=== PATIENT | female | born 1970 | race Caucasian/White ===

== ENCOUNTER 2016-11-16 10:04 | Emergency (ER) | payer MEDICARE ==
[2016-11-16 11:39] VITALS: BP 109/58
--- NOTE | 2016-11-16 11:57 | UC ---
Elbow Pain - HPI Summary HPI Summary: complaint of right elbow pain that started approx 1 month ago there is a lump in her pain increases with lifting something up pain has worsened over the past week pain is radiating into her right hand occasionally constantly has an achy pain shooting burning pain into her hand with lifting sometimes gets swelling over her elbow has been using ice and ibuprofen and somtimes alveve without relief fell down the stairs several months ago and hit her elbow - History of Current Complaint Chief Complaint: UCUpperExtremity Stated Complaint: RIGHT ELBOW PAIN Time Seen by Provider: 11/16/16 11:51 Hx Obtained From: Patient - Allergies/Home Medications Allergies/Adverse Reactions: Allergies Allergy/AdvReac Type Severity Reaction Status Date / Time Morphine Allergy See Comment Verified 11/16/16 11:39 Oxycodone Allergy Itching Verified 11/16/16 11:39 Home Medications: Home Medications Ibuprofen [Advil] 400 mg PO Q6H PRN 11/16/16 [History Confirmed 11/16/16] Naproxen 500 mg PO ONCE 11/16/16 [History Confirmed 11/16/16] PMH/Surg Hx/FS Hx/Imm Hx Previously Healthy: Yes - Surgical History Surgical History: Yes Surgery Procedure, Year, and Place: L5-S1 FUSION 2004, NEUROSTIMULATOR IMPLANTED -2006 - Family History Known Family History: Positive: None Negative: Cardiac Disease, Hypertension, Diabetes - Social History Occupation: Employed Full-time Lives: With Family Alcohol Use: None Substance Use Type: None Smoking Status (MU): Former Smoker When Did the Patient Quit Smoking/Using Tobacco: 2003 Review of Systems Constitutional: Negative Skin: Negative Eyes: Negative ENT: Negative Respiratory: Negative Cardiovascular: Negative Gastrointestinal: Negative Genitourinary: Negative Motor: Negative Neurovascular: Other - right elbow pain Musculoskeletal: Negative Neurological: Negative Psychological: Negative All Other Systems Reviewed And Are Negative: Yes Physical Exam Triage Information Reviewed: Yes Appearance: No Pain Distress, Well-Nourished Vital Signs: Initial Vital Signs Temp 98.9 F 11/16/16 11:34 Pulse 95 11/16/16 11:34 Resp 16 11/16/16 11:34 BP 109/58 11/16/16 11:34 Pulse Ox 98 11/16/16 11:34 Vital Signs Reviewed: Yes Eyes: Positive: Conjunctiva Clear ENT: Positive: Pharynx normal, TMs normal Neck: Positive: No Lymphadenopathy Respiratory: Positive: Lungs clear, Normal breath sounds, No respiratory distress Cardiovascular: Positive: RRR, No Murmur, Pulses Normal Abdomen Description: Positive: Nontender, Soft Bowel Sounds: Positive: Present Musculoskeletal: Positive: Other: - RUE-elbow- tenderness over olecranon,non tedner - medial, lateral epicondyle elbow. Full ROM upon flexion and extension. Neurological Exam: Normal Psychological Exam: Normal Skin Exam: Normal Elbow Pain Course/Dx - Differential Dx/Diagnosis Differential Diagnosis/HQI/PQRI: Fracture (Closed), Sprain, Strain Provider Diagnoses: medial epicondylitis Discharge - Discharge Plan Condition: Stable Disposition: HOME Patient Education Materials: Tennis Elbow (ED), RICE Therapy (ED) Referrals: [facility] [Primary Care Provider] - Casimiro Quijano MD [Medical Doctor] - Additional Instructions: Please call urban [facility] specialist for an appointment. They will evaluate and determine your treatment. . Take naproxen , ibuprofen to control pain and reduce inflammation. wear an elbow strap, apply ice and rest your elbow Please review your discharge instructions. If your symptoms worsen call urban gardening specialist or return to urgent care.
--- NOTE | 2016-11-16 12:23 | RAD ---
HISTORY: Lateral right elbow pain COMPARISONS: None VIEWS: 4, Frontal, lateral, and oblique views of the right elbow FINDINGS: BONE DENSITY: Normal. BONES: There is no displaced fracture. JOINTS: There is no arthropathy. There is no posterior supracondylar fat pad to suggest a joint effusion. ALIGNMENT: There is no dislocation. SOFT TISSUES: Unremarkable. OTHER FINDINGS: None. IMPRESSION: NO ACUTE OSSEOUS INJURY. IF SYMPTOMS PERSIST, RECOMMEND REPEAT IMAGING.
== END 2016-11-16 12:44 | disposition home or self-care (01) ==
LOC: UCCORT 10:04
DX: M77.01 Medial epicondylitis, right elbow (principal); Z87.891 Personal history of nicotine dependence
CPT/HCPCS: 99211; G0463

== ENCOUNTER 2018-06-02 09:57 | Day surgery (SDC) | payer MEDICARE ==
[~2018-06-02 09:57] MED LIST: Buffered Lidocaine 0.9% SYRIN* 5 ML/SYR SYRINGE INTRADERM ONE; Dexamethasone IV* 4 MG/ML 1 ML (4 MG) IV SLOW PU ONE; Famotidine IV* 10 MG/ML 2 ML (20 mg) IV ONE; Lactated Ringers 1000 ML Bag* 1,000 ML IV SCH
[2018-06-02] MEDS ORDERED: Famotidine IV* 10 MG/ML 2 ML (20 mg) ONE (10:33)
[2018-06-02] MEDS ORDERED: ceFAZolin 2 GM PREMIX in ORs 2 GM/50 ML BAG IVPB ONE (10:34)
[2018-06-02] MEDS ORDERED: Dexamethasone IV* 4 MG/ML 1 ML (4 MG) ONE (10:38)
[2018-06-02] MEDS ORDERED: Propofol* 10 MG/ML 20 ML BTL ONE (11:13)
[2018-06-02] MEDS ORDERED: fentaNYL* 50 MCG/ML 5 ML VIAL (250 MCG VIAL) ONE (11:13)
[2018-06-02] MEDS ORDERED: Midazolam* 1 MG/ML 5 ML VIAL (5 MG) ONE (11:13)
[2018-06-02] MEDS ORDERED: Ondansetron INJ* 2 MG/ML VIAL ONE (11:13)
[2018-06-02] MEDS ORDERED: Gentamicin ADULT (*) 40 MG/ML VIAL (2 ML VIAL = 80 MG) ONE (11:47)
[2018-06-02] MEDS ORDERED: Bupivacaine 0.25% SDV PF* 10 ML VIAL INJ ONE (11:47)
[2018-06-02] MEDS ORDERED: ceFAZolin 1 GM VIAL(*) ONE (11:47)
[2018-06-02] MEDS ORDERED: Lidocaine 1% INJ* 10 MG/ML 30 ML SDV ONE (11:47)
[2018-06-02] MEDS ORDERED: Bacitracin IV* 50,000 UNITS INJ ONE (11:48)
[2018-06-02] MEDS ORDERED: Naloxone* 0.4 MG/ML 1 ML VIAL IV PRN (11:56)
[2018-06-02] MEDS ORDERED: diPHENhydraMINE IV* 50 MG/ML 1 ml VIAL (BENADRYL) ONE (12:55)
[2018-06-02 14:28] VITALS: BP 112/70
--- NOTE | 2018-06-02 18:59 | OP ---
DATE OF OPERATION: 06/02/18 - [facility] DATE OF : 72 SURGEON: Jarvis Graham MD. COMMERCIAL [employer]ES UNDERWRITER: None. ANESTHESIOLOGIST: Dr. Goldstein. ANESTHESIA: Local MAC PRE-OP DIAGNOSIS: Failed back syndrome. POST-OP DIAGNOSIS: Failed back syndrome. OPERATIVE PROCEDURE: Dorsal column stimulator IPG change due to failing battery. ESTIMATED BLOOD LOSS: Minimal. SPECIMEN: Old IPG from [employer]. FLUIDS: Per Anesthesia. BRIEF PREOPERATIVE NOTE: The patient is a 47-year-old female who suffers from post-laminectomy syndrome. The patient has had dorsal column stimulator for pain relief since 2011. She uses it 14/12, and it significantly improves her pain; so, over the past year, she has been having difficulties charging it and the battery holding the charge and it has finally failed and she needs the old battery removed and a new IPG placed. I had a chance to discuss with her the procedure in detail, the risks, benefits, and alternatives to therapy including the risk of infection, hematoma, cutting the leads that are in place requiring further surgery, and after going over that with the patient, she was in agreement to proceed. Informed consent was obtained. DESCRIPTION OF PROCEDURE: The patient was brought to the operative suite, placed prone on the operative table. Her back was prepped and draped in the usual sterile fashion. Lidocaine 1% mixed with 0.25% bupivacaine was injected over the area of the previous scar on the right flank. The 15 scalpel blade was used to make a skin incision and meticulous dissection was done down to the capsule being cautious not to damage the wires. The pocket was entered and blunt dissection was done as well as a scalpel dissection to open up the capsule. The old IPG was removed and disconnected from the system. I then irrigated the pocket copiously with antibiotic irrigant and hemostasis was obtained with electrocautery. I then opened up the superior aspect of the capsule so as the new IPG could fit nicely in that old pocket. Hemostasis was obtained with electrocautery and the wound was copiously irrigated with antibiotic irrigant. The new IPG was then connected to the 2 leads, continuity was confirmed before and after the screws were tightened down until audible clicks were heard. The generator was then placed in the pocket and the wound was closed with deep 2-0 interrupted Polysorb sutures followed by more superficial interrupted 3-0 Polysorb suture and then a subcuticular closure was done with 4-0 Polysorb suture. The Dermaflex was placed as well as Steri- Strips and a 4x4 with Tegaderm was placed over the wound. The patient was brought to recovery room in a stable condition where the stimulator will be programmed by the [employer] patient service representative. [id number]/CPS #: [id number] MTDD
== END 2018-06-02 14:29 | disposition home or self-care (01) ==
LOC: OR 09:57
PROVIDERS: ATTEND Anesthesiology Pain Medicine
DX: T85.890A Other specified complication of nervous system prosthetic devices, implants and grafts, initial encounter (principal); M96.1 Postlaminectomy syndrome, not elsewhere classified; Z87.891 Personal history of nicotine dependence; E03.9 Hypothyroidism, unspecified; Y83.1 Surgical operation with implant of artificial internal device as the cause of abnormal reaction of the patient, or of later complication, without mention of misadventure at the time of the procedure
CPT/HCPCS: 88300; A9270-GY; C1787; C1820; J0690; J1100; J1200; J1580; J2250; J2405; J2704; J3010; J3490